=== PATIENT | male | born 1945 | race Caucasian/White ===

== ENCOUNTER → 2018-09-11 | Outpatient (CLI) | payer MEDICARE, BC | LOC: DL.NPLAB 13:41 | PROVIDERS: ATTEND Internal Medicine Hematology & Oncology | DX: C80.1 Malignant (primary) neoplasm, unspecified (principal) | CPT/HCPCS: 85025 ==

== ENCOUNTER 2019-12-15 13:39 | Emergency (ER) | payer MEDICARE, BC ==
[2019-12-15] MEDS ORDERED: Sodium Chloride 0.9% 1,000 ML IV ONE (13:54)
--- NOTE | 2019-12-15 14:15 | EDM.PDOC ---
ED HPI GENERAL MEDICAL PROBLEM - General Chief Complaint: General Stated Complaint: AMBULANCE Time Seen by Provider: 12/15/19 13:55 Source of Information: Reports: Patient History Limitations: Reports: No Limitations - History of Present Illness INITIAL COMMENTS - FREE TEXT/NARRATIVE: This 74 yo male patient was brought to the ED by [facility] due to profound weakness. The patient reports he had chemo last Saturday and was absolutely worn out after chemo. That night he went to bed at 1530, but had to get up to go to the bathroom. After making it 3 steps with his walker when he fell flat on his face. The patient reports he could not even get himself off the ground after that fall. The patient reports today (just prior to calling EMS) his legs got so weak that he thought he would fall if he attempted to walk. The patient reports he has had a cough for the past 3 weeks (reports there is a lot of phlegm in his bronchioles). The patient has not noticed a fever. The patient's temp was 103 upon arrival in the ED. The patient reports that he has not been tested for COVID. Onset: Today Duration: Constant Location: Reports: Lower Extremity, Left, Lower Extremity, Right, Generalized Quality: Reports: Other Severity: Severe Improves with: Reports: None Worsens with: Reports: None Context: Reports: Other Associated Symptoms: Reports: Cough (for 3 weeks), Fever/Chills - Related Data Allergies Allergy/AdvReac Type Severity Reaction Status Date / Time No Known Allergies Allergy Verified 03/27/18 22:01 Past Medical History Cardiovascular History: Reports: High Cholesterol Gastrointestinal History: Reports: GERD Musculoskeletal History: Reports: Neck Pain, Chronic - Past Surgical History Cardiovascular Surgical History: Reports: None Musculoskeletal Surgical History: Reports: Other (See Below) Other Musculoskeletal Surgeries/Procedures:: multiple neck surgeries Social & Family History - Family History Family Medical History: Noncontributory - Caffeine Use Caffeine Use: Reports: Coffee, Soda ED ROS GENERAL - Review of Systems Review Of Systems: Comprehensive ROS is negative, except as noted in HPI. ED EXAM, GENERAL - Physical Exam Exam: See Below Exam Limited By: No Limitations General Appearance: Alert, WD/WN, Moderate Distress, Obese Eye Exam: Bilateral Eye: EOMI, Normal Inspection, PERRL Ears: Normal External Exam, Normal Canal, Hearing Grossly Normal, Normal TMs Nose: Normal Inspection, Normal Mucosa, No Blood Throat/Mouth: Normal Inspection, Normal Lips, Normal Teeth, Normal Gums, Normal Oropharynx, Normal Voice, No Airway Compromise Head: Atraumatic, Normocephalic Neck: Normal Inspection, Supple, Non-Tender, Full Range of Motion Respiratory/Chest: No Respiratory Distress, Lungs Clear, Normal Breath Sounds, No Accessory Muscle Use, Chest Non-Tender Cardiovascular: Normal Peripheral Pulses, Regular Rate, Rhythm, No Edema, No Gallop, No JVD, No Murmur, No Rub GI/Abdominal: Normal Bowel Sounds, Soft, Non-Tender, No Organomegaly, No Distention, No Abnormal Bruit, No Mass (Male) Exam: Deferred Rectal (Males) Exam: Deferred Back Exam: Normal Inspection, Full Range of Motion, NT Extremities: Normal Inspection, Normal Range of Motion, Non-Tender, Normal Capillary Refill, No Pedal Edema Neurological: Alert, Oriented, CN II-XII Intact, Normal Cognition, Normal Gait, Normal Reflexes, No Motor/Sensory Deficits Psychiatric: Normal Affect, Normal Mood Skin Exam: Warm, Dry, Intact, Normal Color, No Rash Lymphatic: No Adenopathy Course - Vital Signs Last Recorded V/S: Last Vital Signs Temp 38.6 C H 12/15/19 15:30 Pulse 101 H 12/15/19 15:30 Resp 18 12/15/19 15:30 BP 110/70 12/15/19 15:30 Pulse Ox 100 12/15/19 15:30 Orthostatic Blood Pressure [ 97/68 Sitting] Orthostatic Blood Pressure [ 103/60 Supine] - Orders/Labs/Meds Orders: Active Orders 24 hr Category Date Time Status Orthostatic Vital Signs [RC] ASDIRECTED Care 12/15/19 15:35 Ordered CULTURE BLOOD [BC] Stat Lab 12/15/19 14:08 Received REFLEX LACTIC ACID YES OR NO [CHEM] Routine Lab 12/15/19 14:57 Received Labs: Laboratory Tests 12/15/19 12/15/19 12/15/19 Range/Units 14:08 14:08 14:08 WBC 8.0 (5.0-10.0) 10^3/uL Corrected WBC 7.0 RBC 2.54 L (4.6-6.2) 10^6/uL Hgb 9.4 L D (14.0-18.0) g/dL Hct 28.7 L (40.0-54.0) % MCV 113.0 H D (80-100) fL MCH 37.0 H (27.0-34.0) pg MCHC 32.8 L (33.0-35.0) g/dL Plt Count 178 (150-450) 10^3/uL Neut % (Auto) 84.6 H (42.2-75.2) % Lymph % (Auto) 11.3 L (20.5-50.1) % [place] % (Auto) 3.5 (2-8) % Eos % (Auto) 0.3 L (1.0-3.0) % Baso % (Auto) 0.3 (0.0-1.0) % Add Manual Diff Yes Neutrophils % (Manual) 77 H (42-75) % Band Neutrophils % 11 % Lymphocytes % (Manual) 9 L (20-50) % Monocytes % (Manual) 3 (2-8) % Nucleated RBCs 13 /100WBC Hypochromasia 1+ slight Macrocytosis 1+ slight Sodium 132 L (136-145) mmol/L Potassium 4.2 (3.5-5.1) mmol/L Chloride 96 L (98-107) mmol/L Carbon Dioxide 31 (21-32) mmol/L Anion Gap 9.2 (7-13) mEq/L BUN 16 (7-18) mg/dL Creatinine 1.02 (0.70-1.30) mg/dL Est Cr Clr Drug Dosing 67.59 mL/min Estimated GFR (MDRD) > 60 BUN/Creatinine Ratio 15.7 (No establ ref range) Glucose 144 H (74-99) mg/dL Lactic Acid 2.4 H* (0.4-2.0) mmol/L Calcium 8.2 L (8.5-10.1) mg/dL Total Bilirubin 0.8 (0.2-1.0) mg/dL AST 47 H (15-37) U/L ALT 77 H (16-63) U/L Alkaline Phosphatase 149 H (46-116) U/L Total Protein 5.6 L (6.4-8.2) g/dL Albumin 2.2 L (3.4-5.0) g/dL Globulin 3.4 Albumin/Globulin Ratio 0.65 Urine Color (YELLOW) Urine Appearance (CLEAR) Urine pH (5.0-9.0) Ur Specific [place] (1.005-1.030) Urine Protein (NEGATIVE) Urine Glucose (UA) (NEGATIVE) Urine Ketones (NEGATIVE) Urine Occult Blood (NEGATIVE) Urine Nitrite (NEGATIVE) Urine Bilirubin (NEGATIVE) Urine Urobilinogen (0.2-1.0) mg/dL Ur Leukocyte Esterase (NEGATIVE) Urine RBC /HPF Urine WBC (0-5/HPF) /HPF Ur Epithelial Cells (NOT SEEN) /HPF Amorphous Sediment (NOT SEEN) /HPF Urine Bacteria (0-FEW/HPF) /HPF Urine Mucus (NOT SEEN) /LPF COVID-19 ([place]IA) (NEGATIVE) 12/15/19 12/15/19 Range/Units 14:15 14:55 WBC (5.0-10.0) 10^3/uL Corrected WBC RBC (4.6-6.2) 10^6/uL Hgb (14.0-18.0) g/dL Hct (40.0-54.0) % MCV (80-100) fL MCH (27.0-34.0) pg MCHC (33.0-35.0) g/dL Plt Count (150-450) 10^3/uL Neut % (Auto) (42.2-75.2) % Lymph % (Auto) (20.5-50.1) % [place] % (Auto) (2-8) % Eos % (Auto) (1.0-3.0) % Baso % (Auto) (0.0-1.0) % Add Manual Diff Neutrophils % (Manual) (42-75) % Band Neutrophils % % Lymphocytes % (Manual) (20-50) % Monocytes % (Manual) (2-8) % Nucleated RBCs /100WBC Hypochromasia Macrocytosis Sodium (136-145) mmol/L Potassium (3.5-5.1) mmol/L Chloride (98-107) mmol/L Carbon Dioxide (21-32) mmol/L Anion Gap (7-13) mEq/L BUN (7-18) mg/dL Creatinine (0.70-1.30) mg/dL Est Cr Clr Drug Dosing mL/min Estimated GFR (MDRD) BUN/Creatinine Ratio (No establ ref range) Glucose (74-99) mg/dL Lactic Acid (0.4-2.0) mmol/L Calcium (8.5-10.1) mg/dL Total Bilirubin (0.2-1.0) mg/dL AST (15-37) U/L ALT (16-63) U/L Alkaline Phosphatase (46-116) U/L Total Protein (6.4-8.2) g/dL Albumin (3.4-5.0) g/dL Globulin Albumin/Globulin Ratio Urine Color Yellow (YELLOW) Urine Appearance Clear (CLEAR) Urine pH 8.0 (5.0-9.0) Ur Specific [place] 1.020 (1.005-1.030) Urine Protein Trace H (NEGATIVE) Urine Glucose (UA) Negative (NEGATIVE) Urine Ketones Negative (NEGATIVE) Urine Occult Blood Negative (NEGATIVE) Urine Nitrite Negative (NEGATIVE) Urine Bilirubin Negative (NEGATIVE) Urine Urobilinogen 4.0 H (0.2-1.0) mg/dL Ur Leukocyte Esterase Negative (NEGATIVE) Urine RBC 0-5 /HPF Urine WBC 0-5 (0-5/HPF) /HPF Ur Epithelial Cells Rare (NOT SEEN) /HPF Amorphous Sediment Few (NOT SEEN) /HPF Urine Bacteria Rare (0-FEW/HPF) /HPF Urine Mucus Rare (NOT SEEN) /LPF COVID-19 (SONIA) Negative (NEGATIVE) Meds: Medications Discontinued Medications Generic Name Dose Route Start Last Admin Trade Name Freq PRN Reason Stop Dose Admin Cephalexin 500 mg 12/15/19 16:24 Keflex PO 12/15/19 16:25 ONETIME ONE Sodium Chloride 1,000 mls @ 999 mls/hr 12/15/19 13:54 12/15/19 14:27 Normal Saline IV 12/15/19 14:54 999 mls/hr .BOLUS ONE Administration Departure - Departure Time of Disposition: 16:26 Disposition: Home, Self-Care 01 Condition: Fair Clinical Impression: COVID-19 virus not detected, Bronchitis, Weakness - Discharge Information *PRESCRIPTION DRUG MONITORING PROGRAM REVIEWED*: Not Applicable *COPY OF PRESCRIPTION DRUG MONITORING REPORT IN PATIENT SCTOT: Not Applicable Instructions: Weakness, [id number], Upper Respiratory Infection, Adult, [id number] Forms: ED Department Discharge Care Plan Goals: The patient and his were advised of the examination, lab, and x-ray results during the visit. The patient was given a dose of Keflex while in the ED. The patient did not want to be admitted to the hospital at this time. The patient was discharged with a script for Keflex (500 mg) #20 to take 1 by mouth 2 times per day for 10 days. If the patient has any additional symptoms or concerns, the patient should either return to the emergency department or visit his primary care facility. Sepsis Event Note (ED) - Evaluation Sepsis Screening Result: No Definite Risk - Focused Exam Vital Signs: Vital Signs Temp Pulse Resp BP Pulse Ox 12/15/19 15:30 38.6 C H 101 H 18 110/70 100 12/15/19 13:55 40.1 C H 113 H 26 H 125/84 97 - My Orders Last 24 Hours: My Active Orders 12/15/19 14:08 CULTURE BLOOD [BC] Stat 12/15/19 14:57 REFLEX LACTIC ACID YES OR NO [CHEM] Routine 12/15/19 15:35 Orthostatic Vital Signs [RC] ASDIRECTED - Assessment/Plan Last 24 Hours: My Active Orders 12/15/19 14:08 CULTURE BLOOD [BC] Stat 12/15/19 14:57 REFLEX LACTIC ACID YES OR NO [CHEM] Routine 12/15/19 15:35 Orthostatic Vital Signs [RC] ASDIRECTED
[2019-12-15 14:47] LABS: ANION GAP 9.2 mEq/L (7-13); CHLORIDE,CL 96 mmol/L (98-107); SODIUM,NA 132 mmol/L (136-145)
--- NOTE | 2019-12-15 16:15 | CR ---
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 INTERPRETATION: No acute new cardiopulmonary abnormality (comparison film 21 August 2017). 1. Normal cardiac silhouette. No pulmonary vascular congestion, cephalization of flow, alveolar edema or dependent pleural effusion. 2. No new lung mass, hilar lymphadenopathy or focal lobar pneumonia. 3. No pneumothorax or pneumomediastinum. Midline tracheal bronchial airway unremarkable.
[2019-12-15] MEDS ORDERED: Cephalexin 500 MG Cap PO ONE (16:24)
== END 2019-12-15 16:48 | disposition home or self-care (01) ==
LOC: DL.ED 13:39
DX: J40 Bronchitis, not specified as acute or chronic (principal); E66.9 Obesity, unspecified; Z20.828 Contact with and (suspected) exposure to other viral communicable diseases; Z68.31 Body mass index [BMI] 31.0-31.9, adult
CPT/HCPCS: 36415; 71045; 80053; 81001; 83605; 85025; 87040; 96360; 99283; 99285-25; A9270-GY; J1642; J7030; U0002

== ENCOUNTER 2020-02-19 11:23 | Emergency (ER) | payer MEDICARE, BC ==
[2020-02-19] MEDS ORDERED: Morphine 2 MG/ML SYRINGE IVPUSH ONE (12:19)
[2020-02-19] MEDS ORDERED: GI Cocktail Oral Solution 30 ML PO ONE (12:24)
--- NOTE | 2020-02-19 12:31 | EDM.PDOC ---
ED HPI GENERAL MEDICAL PROBLEM - General Chief Complaint: General Stated Complaint: STAGE 3 CANCER Time Seen by Provider: 02/19/20 12:00 Source of Information: Reports: Patient, RN History Limitations: Reports: No Limitations - History of Present Illness INITIAL COMMENTS - FREE TEXT/NARRATIVE: 74 year old male with history of Stage 3 lung cancer who presents to the ER by referral from his PCP for an evaluation. Patient states he has Stage 3 Lung cancer which is deteriorating. Chemo was stopped in November and for the last three weeks, it has become painful to take deep breaths. Patient also states GERD symptoms have worsened. He has been taking TUMS with no little relief. Rates his GERD pain as 3/10. Chest pain with coughing is 7-8/10 and 4/10 at rest. Cough is non productive. He states he is always cold. Epigastric Pain Score (Numeric/FACES): 4 - Related Data Allergies Allergy/AdvReac Type Severity Reaction Status Date / Time No Known Allergies Allergy Verified 03/27/18 22:01 Home Meds: Home Meds Apixaban [Eliquis] 5 mg PO BID 02/19/20 [History] Past Medical History Cardiovascular History: Reports: High Cholesterol Gastrointestinal History: Reports: GERD Musculoskeletal History: Reports: Neck Pain, Chronic Oncologic (Cancer) History: Reports: Bone, Liver, Lung, Lymphoma - Past Surgical History Cardiovascular Surgical History: Reports: None Musculoskeletal Surgical History: Reports: Other (See Below) Other Musculoskeletal Surgeries/Procedures:: multiple neck surgeries Social & Family History - Family History Family Medical History: Noncontributory - Tobacco Use Tobacco Use Status *Q: Unknown Ever Used Tobacco - Caffeine Use Caffeine Use: Reports: Coffee, Soda - Recreational Drug Use Recreational Drug Use: No ED ROS GENERAL - Review of Systems Review Of Systems: See Below Constitutional: Reports: No Symptoms HEENT: Reports: No Symptoms Respiratory: Reports: Shortness of Breath, Cough Cardiovascular: Reports: Chest Pain (with taking deep breaths) Endocrine: Reports: No Symptoms GI/Abdominal: Reports: Abdominal Pain (epigastric area) : Reports: No Symptoms Musculoskeletal: Reports: No Symptoms Skin: Reports: No Symptoms Neurological: Reports: No Symptoms Psychiatric: Reports: No Symptoms ED EXAM, GENERAL - Physical Exam Exam: See Below Exam Limited By: No Limitations General Appearance: Alert Neck: Normal Inspection, Supple Respiratory/Chest: Decreased Breath Sounds, Other (diminished lung sounds) Cardiovascular: Normal Peripheral Pulses, Regular Rate, Rhythm, No Edema, No Gallop, No JVD, No Murmur, No Rub GI/Abdominal: Normal Bowel Sounds, Soft, Tender (mild epigastric tenderness noted) Back Exam: Normal Inspection Extremities: Normal Inspection, Non-Tender, No Pedal Edema Neurological: Alert, Oriented Psychiatric: Normal Affect Skin Exam: Warm Lymphatic: No Adenopathy Course - Vital Signs Last Recorded V/S: Last Vital Signs Temp 98.3 F 02/19/20 11:49 Pulse 95 02/19/20 11:49 Resp 16 02/19/20 11:49 BP 114/86 02/19/20 11:49 Pulse Ox 100 02/19/20 11:49 - Orders/Labs/Meds Labs: Laboratory Tests 02/19/20 02/19/20 02/19/20 Range/Units 11:51 11:51 11:51 WBC 8.8 (5.0-10.0) 10^3/uL RBC 4.29 L (4.6-6.2) 10^6/uL Hgb 13.8 L (14.0-18.0) g/dL Hct 43.3 (40.0-54.0) % MCV 100.9 H (80-100) fL MCH 32.2 (27.0-34.0) pg MCHC 31.9 L (33.0-35.0) g/dL Plt Count 231 D (150-450) 10^3/uL Neut % (Auto) 82.1 H (42.2-75.2) % Lymph % (Auto) 8.3 L (20.5-50.1) % [place] % (Auto) 8.4 H (2-8) % Eos % (Auto) 0.9 L (1.0-3.0) % Baso % (Auto) 0.3 (0.0-1.0) % D-Dimer, Quantitative 525 H (0-400) ng/mL Sodium 137 (136-145) mmol/L Potassium 3.4 L (3.5-5.1) mmol/L Chloride 100 (98-107) mmol/L Carbon Dioxide 32 (21-32) mmol/L Anion Gap 8.4 (7-13) mEq/L BUN 12 (7-18) mg/dL Creatinine 0.81 (0.70-1.30) mg/dL Est Cr Clr Drug Dosing 85.12 mL/min Estimated GFR (MDRD) > 60 BUN/Creatinine Ratio 14.8 (No establ ref range) Glucose 129 H (74-99) mg/dL Calcium 9.0 (8.5-10.1) mg/dL Total Bilirubin 2.0 H (0.2-1.0) mg/dL AST 175 H (15-37) U/L ALT 382 H (16-63) U/L Alkaline Phosphatase 297 H (46-116) U/L Total Protein 6.0 L (6.4-8.2) g/dL Albumin 2.4 L (3.4-5.0) g/dL Globulin 3.6 Albumin/Globulin Ratio 0.67 Meds: Medications Discontinued Medications Generic Name Dose Route Start Last Admin Trade Name Freq PRN Reason Stop Dose Admin Al Hydroxide/Mg Hydroxide 30 ml 02/19/20 12:24 02/19/20 12:32 Gi Cocktail PO 02/19/20 12:25 30 ml ONETIME ONE Administration Heparin Sodium (Porcine) 500 units 02/19/20 15:35 02/19/20 15:41 Heparin Lock Flush 100 Units/Ml FLUSH 02/19/20 15:36 500 units ONETIME ONE Administration Iopamidol 100 ml 02/19/20 14:22 02/19/20 14:27 Isovue-370 (76%) IVPUSH 02/19/20 14:23 77 ml ONETIME ONE Administration Morphine Sulfate 1 mg 02/19/20 12:19 02/19/20 12:31 Morphine IVPUSH 02/19/20 12:20 1 mg ONETIME ONE Administration - Re-Assessments/Exams Free Text/Narrative Re-Assessment/Exam: Reviewed exam findings, labs results and CT reviewed with Patient and PCP. Morphine 1 mg and GI cocktail administered With relief. Rx for Oxycodone 50 mg TID prn given to patient. Follow up with PCP. Patient and PCP in agreement to plan. Departure - Departure Time of Disposition: 15:59 Disposition: Home, Self-Care 01 Clinical Impression: Lung metastases Qualifiers: Laterality: unspecified laterality Qualified Code(s): C78.00 - Secondary malign ant neoplasm of unspecified lung GERD (gastroesophageal reflux disease) Qualifiers: Esophagitis presence: without esophagitis Qualified Code(s): K21.9 - Gastro- esophageal reflux disease without esophagitis - Discharge Information Forms: ED Department Discharge Additional Instructions: Rx for Oxycodone 50 mg TID prn given to patient. Follow up with PCP. Sepsis Event Note (ED) - Evaluation Sepsis Screening Result: No Definite Risk - Focused Exam Vital Signs: Vital Signs Temp Pulse Resp BP Pulse Ox 02/19/20 11:49 98.3 F 95 16 114/86 100
[2020-02-19 12:37] LABS: ANION GAP 8.4 mEq/L (7-13); CHLORIDE,CL 100 mmol/L (98-107); SODIUM,NA 137 mmol/L (136-145)
[2020-02-19] MEDS ORDERED: Iopamidol 755 Mg/ML 100 ML Bottle IVPUSH ONE (14:22)
--- NOTE | 2020-02-19 15:29 | CT ---
EXAMINATION: Ang Chest SEX: Male AGE: 74 years CLINICAL HISTORY: 74 year-old 221 pound male with history of "primary lung malignancy" i.e. cancer with hepatic metastasis and lytic pelvic skeletal lesions" who presents now with CHEST DISCOMFORT (deep breaths). Negative d-dimer. Patient is on anticoagulant. Scan technique: Volume acquisition of data from the chest (bony thorax, lungs and mediastinum) obtained during the intravenous administration 77 cc nonionic Isovue 370 contrast at 5 cc/s via injector (CT PE protocol) while patient was lying supine on the Siemens multi slice scanner [place], [place]. All data archived in the PACS system for storage, reformatting axial/sagittal/coronal planes and study (lung/mediastinal windows). Interpretation: Abnormal. Metastatic disease. No pulmonary embolism/infarct. No pneumonia. 1. Inhomogeneously dense, enlarged liver i.e. multiple intrahepatic mass lesions. 2. *Multiple, predominantly peripheral, round parenchymal lung lesions of varying size and density. 3. No sign of intraluminal filling defect or thrombus pulmonary artery circulation. No focal lobar oligemia or peripheral pleural-based wedge shaped infarcts. 4. No sign of peripheral "groundglass" infiltrates typical of COVID viral infection. 5. Azygous lymphadenopathy (paratracheal on the right) and subcentimeter middle mediastinal lymph nodes. 6. No dominant malignant-appearing lung mass. No hilar lymphadenopathy. No focal lobar infiltrates. 7. Normal cardiac silhouette. No pericardial effusion or pulmonary vascular congestion. 8. Normal caliber thoracic aorta. No aneurysm or dissection. Osteopenia, multilevel disc disease, and spondylosis dorsal spine. Osteolytic lesions two adjacent mid thoracic vertebra. Cervical disc disease. CONCLUSION: Widespread METASTATIC DISEASE lungs and liver. No indication of viral or other pneumonia. Low probability pulmonary embolism/infarct.
== END 2020-02-19 15:56 | disposition home or self-care (01) ==
LOC: DL.ED 11:23
DX: C78.00 Secondary malignant neoplasm of unspecified lung (principal); K21.9 Gastro-esophageal reflux disease without esophagitis
CPT/HCPCS: 36415; 71260; 80053; 85025; 85379; 96374; 99285; A9270; J1642; J2270; Q9967; 71275